=== PATIENT | female | born 1940 | race Caucasian/White ===

== ENCOUNTER → 2016-05-29 | Outpatient (REF) | payer MEDICARE ==
[2016-05-29 17:03] LABS: FREE T4 1.34 NG/DL (0.76-1.46)
== END ==
LOC: M LABDRAW1 15:55
PROVIDERS: ATTEND Internal Medicine Endocrinology, Diabetes & Metabolism
DX: E04.1 Nontoxic single thyroid nodule (principal)

== ENCOUNTER → 2016-06-18 | Outpatient (REF) | payer MEDICARE ==
[~2016-06-18] MED LIST: AMIO20TA PO; ATEN50TA2 PO; BACL10TA PO; CALCCHW PO; ELIQ5TAB PO; FURO40TA2 PO
== END ==
LOC: M LAB REF 15:38
PROVIDERS: ATTEND Internal Medicine Endocrinology, Diabetes & Metabolism
DX: E04.9 Nontoxic goiter, unspecified (principal)

== ENCOUNTER → 2016-06-19 | Day surgery (SDC) | payer MEDICARE ==
[~2016-06-19] VITALS: Ht 154.9 cm; Wt 81.6 kg
[~2016-06-19] MED LIST changes: +LR 1,000 ML IV SCH
--- NOTE | 2016-06-19 07:09 | ECGEPIP ---
Stationary ECG Study [facility] Test Date: 2016-06-19 Pat Name: MILLA CHE Department: Room: - Gender: F Transitional Care Manager: ANTONIA : 1940 Requested By: Noreen Waddell Order Number: [id number] Reading MD: Estefany Baxter Measurements Intervals [place]out Rate: 72 P: GA: 0 QRS: -21 QRSD: 94 T: 66 QT: 410 QTc: 449 Interpretive Statements ATRIAL FLUTTER/ LEFT AXIS DEVIATION NONSPECIFIC T-WAVE ABNORMALITY ABNORMAL RHYTHM ECG NO PRIOR Electronically Signed On 06-19-2016 7:08:51 EST by Estefany Baxter
--- NOTE | 2016-06-19 08:43 | RO ---
DATE OF PROCEDURE: 06/19/2016 DIAGNOSIS: Atrial fibrillation. PROCEDURE: DC cardioversion. SURGEON: Noreen Waddell MD ANESTHESIOLOGIST: Bre Medina CRNA BRIEF HISTORY: Mrs. Francois is a 76-year-old female who has had persistent atrial fibrillation for at least several months. She has been treated with combination of anticoagulation, beta roberta and amiodarone. In spite of these medications, she did not return to sinus mechanism. Consequently, she is being brought for DC cardioversion. The nature of the procedure, its indication and possible complications, including the risk of stroke, need for pacemaker and risk of aspiration pneumonia were discussed with the patient on outpatient basis. Appropriate consent was obtained. PROCEDURE NOTE: The procedure was performed in recovery room. She presented in a fasting condition. Anesthesiology administered sedation. She received a total of 50 mg of IV propofol. When appropriate level of sedation was accomplished, she was cardioverted using 200 joules of energy in biphasic pattern with defibrillator patches applied in anterior position. The patient went back into sinus rhythm without post conversion pause. There were no immediate complications, and she tolerated the procedure well. 12-lead ECG is pending at the time of my dictation. She will be discharged home after brief observation, and I will see her in followup next week. Her medication will remain unchanged. KRISTIN
[2016-06-19 10:30] VITALS: BP 116/57
--- NOTE | 2016-06-19 12:41 | ECGEPIP ---
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
== END | disposition home or self-care (01) ==
LOC: M SDC 06:30
PROVIDERS: ATTEND Internal Medicine Cardiovascular Disease
DX: I48.91 Unspecified atrial fibrillation (principal); K21.9 Gastro-esophageal reflux disease without esophagitis; R94.31 Abnormal electrocardiogram [ECG] [EKG]; I50.9 Heart failure, unspecified; I10 Essential (primary) hypertension; R60.0 Localized edema; E04.1 Nontoxic single thyroid nodule; R23.3 Spontaneous ecchymoses; R29.898 Other symptoms and signs involving the musculoskeletal system; M12.9 Arthropathy, unspecified; M54.9 Dorsalgia, unspecified; R51 Headache; R06.83 Snoring; G47.9 Sleep disorder, unspecified; Z79.899 Other long term (current) drug therapy; Z90.710 Acquired absence of both cervix and uterus; Z85.3 Personal history of malignant neoplasm of breast; Z92.3 Personal history of irradiation

== ENCOUNTER → 2016-09-17 | Outpatient (CLI) | payer MEDICARE ==
[~2016-09-17] MED LIST changes: -LR 1,000 ML IV SCH
--- NOTE | 2016-09-17 10:59 | REPMRS ---
Patient History The patient states she had a clinical breast exam in September 2016. Patient is postmenopausal and has history of cancer in the left breast at age 65. Family history of prostate cancer in father at age 80 and breast cancer in mother at age 85. Malignant lumpectomy of the left breast, 2006. Radiation therapy of the left breast, 2006. Digital Mammo Screening Bilat: September 17, 2016 - Exam #: [id number] Bilateral CC and MLO view(s) were taken. Technologist: Giselle Sterling, Technologist Prior study comparison: September 13, 2015, bilateral digital mammo screening bilat performed at [facility]. August 10, 2014, bilateral digital mammo screening bilat performed at [facility]. August 09, 2013, bilateral digital mammo screening bilat performed at [facility]. FINDINGS: There are scattered fibroglandular densities. There are stable post treatment changes in the left breast. There is a needle biopsy marker clip in the left breast. There has been no change in the appearance of the mammogram from the prior studies. There is a mild amount of scattered fibroglandular density which is fairly symmetric. There is no interval development of dominant mass, architectural distortion, or clustered microcalcification suggestive of malignancy. ASSESSMENT: BI-RADS/ACR category 1 mammogram. Negative. Recommendation Routine screening mammogram in 1 year (for women over age 40). This mammogram was interpreted with the aid of an FDA-approved computer-aided dectection system. Electronically Signed By: Ben Branham MD 09/17/16 [id number]
== END ==
LOC: M RAD 09:01
PROVIDERS: ATTEND Internal Medicine Medical Oncology
DX: Z12.31 Encounter for screening mammogram for malignant neoplasm of breast (principal); Z85.3 Personal history of malignant neoplasm of breast

== ENCOUNTER → 2017-06-23 | Outpatient (CLI) | payer MEDICARE ==
[2017-06-23 18:00] LABS: HEMOGLOBIN 13.7 g/dl (12.0-16.0); MEAN CORPUSCULAR HEMOGLOBIN 30.7 pg (27.0-33.0); MEAN CORPUSCULAR HGB CONC 32.6 g/dl (32.0-36.5); MEAN CORPUSCULAR VOLUME 94.2 fl (80.0-96.0); PLATELET COUNT, AUTOMATED 194 10^3/uL (150-450); RED BLOOD COUNT 4.46 10^6/uL (4.00-5.40); RED CELL DISTRIBUTION WIDTH 11.9 % (11.5-14.5); WHITE BLOOD COUNT 7.2 10^3/uL (4.0-10.0)
[2017-06-23 18:13] LABS: ALBUMIN 3.7 GM/DL (3.2-5.2); ALBUMIN/GLOBULIN RATIO 1.19 (1.00-1.93); ALKALINE PHOSPHATASE 84 U/L (45-117); ALT/SGPT 24 U/L (12-78); ANION GAP 9 MEQ/L (8-16); AST/SGOT 20 U/L (7-37); BILIRUBIN,TOTAL 0.7 MG/DL (0.2-1.0); BLOOD UREA NITROGEN 23 MG/DL (7-18); CALCIUM LEVEL 8.6 MG/DL (8.8-10.2); CARBON DIOXIDE LEVEL 29 MEQ/L (21-32); CHLORIDE LEVEL 106 MEQ/L (98-107); GLOMERULAR FILTRATION RATE > 60.0 (>39); GLUCOSE, FASTING 85 MG/DL (70-100); POTASSIUM SERUM 4.5 MEQ/L (3.5-5.1); SODIUM LEVEL 144 MEQ/L (136-145); TOTAL PROTEIN 6.8 GM/DL (6.4-8.2)
== END ==
LOC: M WUC 10:48
DX: Z51.81 Encounter for therapeutic drug level monitoring (principal); Z79.899 Other long term (current) drug therapy
CPT/HCPCS: 84443

== ENCOUNTER → 2017-09-22 | Outpatient (CLI) | payer MEDICARE | LOC: M RAD 12:47 | DX: Z12.31 Encounter for screening mammogram for malignant neoplasm of breast (principal) | CPT/HCPCS: 77067 ==

== ENCOUNTER → 2018-09-24 | Outpatient (CLI) | payer MEDICARE ==
[~2018-09-24] MED LIST changes: +AMIO200T PO; -AMIO20TA PO; -BACL10TA PO; +BACL1TAB8 PO; +METO1TAB87 PO
--- NOTE | 2018-09-24 15:23 | REPMRS ---
Patient History The patient states she had a clinical breast exam in September 2018. Family history of breast cancer at age 85 in mother, prostate cancer at age 80 in father. Malignant lumpectomy of the left breast, 2006. Radiation therapy of the left breast, 2006. Digital Mammo Screening Bilat: September 24, 2018 - Exam #: [id number] Bilateral CC and MLO view(s) were taken. Technologist: Giselle Sterling, Technologist Prior study comparison: September 22, 2017, bilateral digital mammo screening bilat performed at [facility]. September 17, 2016, bilateral digital mammo screening bilat performed at [facility]. September 13, 2015, bilateral digital mammo screening bilat performed at [facility]. FINDINGS: There are scattered fibroglandular densities. There are stable post treatment changes in the left breast. There has been no change in the appearance of the mammogram from the prior studies. There is a mild amount of scattered fibroglandular density which is fairly symmetric. There is no interval development of dominant mass, architectural distortion, or clustered microcalcification suggestive of malignancy. 3-D tomosynthesis shows no additional findings. Assessment: BI-RADS/ACR category 2 mammogram. Benign Findings. Recommendation Routine screening mammogram of both breasts in 1 year (for women over age 40). This mammogram was interpreted with the aid of an FDA-approved computer-aided dectection system. Electronically Signed By: Ben Branham MD 09/24/18 [id number]
== END ==
LOC: M RAD 14:23
PROVIDERS: ATTEND Internal Medicine Hematology & Oncology
DX: Z12.31 Encounter for screening mammogram for malignant neoplasm of breast (principal); Z85.3 Personal history of malignant neoplasm of breast; Z92.3 Personal history of irradiation; Z80.3 Family history of malignant neoplasm of breast

== ENCOUNTER 2021-06-02 17:14 | Emergency (ER) | payer MEDICARE ==
[~2021-06-02] VITALS: Ht 154.9 cm; Wt 81.8 kg
[~2021-06-02 17:14] MED LIST changes: -AMIO200T PO; +AMIO200T49 PO
[2021-06-02] MEDS ORDERED: PHENYLEPHRINE 0.5% NASAL SPRAY 15 ML ONE (17:35)
[2021-06-02 18:25] LABS: BASO % 0.5 % (0.0-1.0); EOS # 0.1 10^3/uL (0.0-0.5); EOS % 1.3 % (0.0-3.0); HEMOGLOBIN 14.1 g/dl (12.0-15.5); LYMPH # 2.3 10^3/uL (1.5-5.0); LYMPH % 26.2 % (24.0-44.0); MEAN CORPUSCULAR HEMOGLOBIN 30.8 pg (27.0-33.0); MEAN CORPUSCULAR HGB CONC 33.6 g/dl (32.0-36.5); MEAN CORPUSCULAR VOLUME 91.7 fl (80.0-96.0); MONO # 0.6 10^3/uL (0.0-0.8); MONO % 7.3 % (2.0-8.0); NEUTROPHILS # 5.7 10^3/uL (1.5-8.5); NEUTROPHILS % 64.2 % (36.0-66.0); PLATELET COUNT, AUTOMATED 199 10^3/uL (150-450); RED BLOOD COUNT 4.58 10^6/uL (4.00-5.40); WHITE BLOOD COUNT 8.8 10^3/uL (4.0-10.0)
[2021-06-02] MEDS ORDERED: ONDANSETRON 4MG ORAL DISINTEGRATING TAB PO ONE (18:25)
[2021-06-02 20:12] VITALS: BP 163/86
== END 2021-06-02 20:09 | disposition home or self-care (01) ==
LOC: M ED 17:14
DX: R04.0 Epistaxis (principal); I10 Essential (primary) hypertension; I48.91 Unspecified atrial fibrillation; Z85.3 Personal history of malignant neoplasm of breast; Z79.899 Other long term (current) drug therapy; Z79.01 Long term (current) use of anticoagulants

== ENCOUNTER 2021-08-30 15:50 | Emergency (ER) | payer MEDICARE ==
[~2021-08-30] VITALS: Ht 154.9 cm; Wt 8.1 kg
[2021-08-30 18:02] LABS: BASO % 0.3 % (0.0-1.0); EOS # 0.1 10^3/uL (0.0-0.5); HEMATOCRIT 48.4 % (36.0-47.0); HEMOGLOBIN 16.1 g/dl (12.0-15.5); LYMPH # 2.1 10^3/uL (1.5-5.0); LYMPH % 32.8 % (24.0-44.0); MEAN CORPUSCULAR HEMOGLOBIN 30.9 pg (27.0-33.0); MEAN CORPUSCULAR HGB CONC 33.3 g/dl (32.0-36.5); MEAN CORPUSCULAR VOLUME 92.9 fl (80.0-96.0); MONO # 0.9 10^3/uL (0.0-0.8); MONO % 13.7 % (2.0-8.0); NEUTROPHILS # 3.3 10^3/uL (1.5-8.5); PLATELET COUNT, AUTOMATED 218 10^3/uL (150-450); RED BLOOD COUNT 5.21 10^6/uL (4.00-5.40); WHITE BLOOD COUNT 6.5 10^3/uL (4.0-10.0)
[2021-08-30 18:13] LABS: INR 1.19; PARTIAL THROMBOPLASTIN TIME 28.1 SECONDS (25.9-37.0); PROTHROMBIN TIME 15.5 SECONDS (12.7-14.5)
[2021-08-30 18:29] LABS: ALBUMIN 3.8 GM/DL (3.2-5.2); ALT/SGPT 27 U/L (12-78); BILIRUBIN,DIRECT 0.1 MG/DL (0.0-0.2); BLOOD UREA NITROGEN 23 MG/DL (7-18); CALCIUM LEVEL 8.9 MG/DL (8.8-10.2); CARBON DIOXIDE LEVEL 26 MEQ/L (21-32); CHLORIDE LEVEL 107 MEQ/L (98-107); CREATININE FOR GFR 0.94 MG/DL (0.55-1.30); GLOMERULAR FILTRATION RATE > 60.0 (>32); GLUCOSE, FASTING 90 MG/DL (70-100); LIPASE 117 U/L (73-393); POTASSIUM SERUM 4.7 MEQ/L (3.5-5.1); SODIUM LEVEL 140 MEQ/L (136-145); TOTAL PROTEIN 8.3 GM/DL (6.4-8.2)
[2021-08-30 20:45] VITALS: BP 165/91
== END 2021-08-30 21:08 | disposition home or self-care (01) ==
LOC: M ED 15:50
DX: K56.7 Ileus, unspecified (principal); R19.5 Other fecal abnormalities; I10 Essential (primary) hypertension; I48.91 Unspecified atrial fibrillation; Z85.3 Personal history of malignant neoplasm of breast; Z79.899 Other long term (current) drug therapy; Z79.01 Long term (current) use of anticoagulants